=== PATIENT | female | born 1955 | race Caucasian/White ===

== ENCOUNTER → 2024-11-07 | Outpatient (CLI) | payer MEDICARE, BC, SELFPAY ==
[2024-11-07 08:45] LABS: Basophils # (Auto) 0.1 Thou/mm3 (0.0-0.2); Basophils % (Auto) 1 % (0-2.5); Eosinophils # (Auto) 0.2 Thou/mm3 (0.0-0.5); Eosinophils % (Auto) 3 % (0-10); Hematocrit 38.6 % (36.0-46.0); Hemoglobin 12.4 g/dL (12.0-16.0); Immature Granulocytes % (Auto) 1 % (0-0); Immature Granulocytes Auto 0.06 Thou/mm3 (0.00-0.00); Lymphocytes # (Auto) 1.9 Thou/mm3 (1.0-4.8); Lymphocytes % (Auto) 23 % (10-50); Mean Corpuscular HGB Conc 32.1 g/dl (31.0-37.0); Mean Corpuscular Hemoglobin 30.6 pg (25.0-35.0); Mean Corpuscular Volume 95 fL (80-100); Monocytes # (Auto) 0.7 Thou/mm3 (0.0-0.8); Monocytes % (Auto) 8 % (0-12); Neutrophils # (Auto) 5.3 Thou/mm3 (1.8-7.7); Neutrophils % (Auto) 64 % (37-80); Nucleated Red Blood Cell % 0 /100 WBC (0); Platelet Count 356 Thou/mm3 (140-440); RDW Standard Deviation 44.2 fL (36.4-46.3); Red Blood Count 4.05 Miln/mm3 (4.00-5.20); White Blood Count 8.3 Thou/mm3 (3.6-11.0)
[2024-11-07 08:52] LABS: Anion Gap 8 (7-16); BUN/Creatinine Ratio 16 Ratio (12-20); Blood Urea Nitrogen 13 mg/dL (9-23); Calcium 9.3 mg/dL (8.3-10.6); Carbon Dioxide 29.4 mMol/L (20.0-31.0); Chloride 106 mMol/L (98-107); Creatinine (Component) 0.8 mg/dL (0.6-1.3); Glucose 105 mg/dL (74-106); Osmolality,Calculated 285 (275-295); Potassium 4.5 mMol/L (3.4-5.1); Sodium 143 mMol/L (136-145); eGFR > 60 See Note
== END | disposition home or self-care (01) ==
LOC: COPL 07:24
PROVIDERS: PCP Internal Medicine; Referring Provider Obstetrics & Gynecology Female Pelvic Medicine and Reconstructive Surgery; Visit Provider Obstetrics & Gynecology Female Pelvic Medicine and Reconstructive Surgery
DX: N39.3 Stress incontinence (female) (male) (principal)
CPT/HCPCS: 36415; 80048; 85025

== ENCOUNTER → 2024-11-23 | Outpatient (CLI) | payer MEDICARE, BC, SELFPAY ==
[2024-11-23 08:55] LABS: Glucose,Fasting 116 mg/dL (74-106)
== END | disposition home or self-care (01) ==
LOC: COPL 06:38
PROVIDERS: PCP Internal Medicine; Referring Provider Ophthalmology; Visit Provider Ophthalmology
DX: Z01.818 Encounter for other preprocedural examination (principal); H25.811 Combined forms of age-related cataract, right eye
CPT/HCPCS: 36415; 82947

== ENCOUNTER → 2024-11-24 | Outpatient (CLI) | payer MEDICARE, BC, SELFPAY ==
--- NOTE | 2024-11-24 15:38 | EKG_ITS ---
[facility] Test Date: 2024-11-24 Pat Name: KATERIN FARMER Department: Room: - Gender: Female Trial Mgr: VIVIANE : 1955 Requested By: Freddie Anderson Order Number: [id number] Reading MD: Freddie Anderson Measurements Intervals [place] Rate: 75 P: 50 OK: 188 QRS: -29 QRSD: 101 T: 41 QT: 359 QTc: 401 Interpretive Statements SINUS RHYTHM LOW QRS VOLTAGE IN PRECORDIAL LEADS [QRS DEFLECTION < 1.0 mV IN CHEST LEADS] INCOMPLETE RIGHT BUNDLE BRANCH BLOCK [90+ ms QRS DURATION, TERMINAL R IN V1/V2, 40+ ms S IN I/aVL/V4/V5/V6] POSSIBLE ANTERIOR MYOCARDIAL INFARCTION , PROBABLY OLD [30 ms Q WAVE IN V3/V4, OR R < 0.2 mV IN V4] No previous ECG available for comparison /store/[email or web address]/[id number].pdf
== END | disposition home or self-care (01) ==
PROVIDERS: PCP Internal Medicine; Referring Provider Ophthalmology; Visit Provider Ophthalmology
DX: Z01.818 Encounter for other preprocedural examination (principal); H25.811 Combined forms of age-related cataract, right eye
CPT/HCPCS: 93005

== ENCOUNTER → 2025-04-10 | Outpatient (CLI) | payer MEDICARE, BC, SELFPAY ==
--- NOTE | 2025-04-10 09:03 | XR_ITS ---
Examination: Foot, right, 3 views Technique: AP, oblique, lateral views foot, 3 views Date and time of exam: April 10, 2025 0915 hours INDICATIONS: Right foot pain beginning one year ago. FINDINGS: Significant osteopenia. Advanced osteoarthritis first metatarsophalangeal joint No fracture 6 mm plantar bony calcaneal spur. IMPRESSION: Advanced osteoarthritis first metatarsophalangeal joint
== END | disposition home or self-care (01) ==
PROVIDERS: PCP Internal Medicine; Referring Provider Podiatrist; Visit Provider Podiatrist
DX: M19.071 Primary osteoarthritis, right ankle and foot (principal)
CPT/HCPCS: 73630